=== PATIENT | male | born 1985 | race African-American/Black ===

== ENCOUNTER → 2021-01-21 11:39 | Outpatient (CLI) | payer OTHER, SELFPAY ==
--- NOTE | 2021-01-21 | DI.MRI.S_ITS ---
PROCEDURE: MR SHOULDER LT WO CON INDICATIONS: Pain in left shoulder TECHNIQUE: Noncontrast oblique coronal T2 fast spin echo with fat saturation, oblique sagittal T1 spin echo and T2 fast spin echo with fat saturation, axial T1 spin echo and T2 fast spin echo with fat saturation through the shoulder. COMPARISON: [facility], [place], XR SHOULDER 2+ VIEWS LEFT, 01/02/2021, 10:45. FINDINGS: Image quality: Excellent. Rotator cuff: Mild T2 signal elevation is present diffusely throughout the mid and anterior supraspinatus tendon at the humeral insertion site, indicating tendinopathy. The supraspinatus, infraspinatus, subscapularis and teres minor tendons are intact. Bones and bursae: No bone marrow contusions or fractures. Mild acromioclavicular joint degeneration. The acromion demonstrates conventional anatomy, without an os acromiale. A small amount of subacromial-subdeltoid or subcoracoid bursal fluid is present. Capsule and soft tissues: Labrum is grossly unremarkable The long head of the biceps tendon demonstrates normal location and morphology. The rotator interval appears normal, without fibrosis. The coracohumeral ligament is normal in thickness. IMPRESSION: 1. Supraspinatus tendinopathy. No rotator cuff tear. 2. Acromioclavicular joint osteoarthritis. 3. Mild subacromial bursitis. Dictated by: Kody De Jesus M.D. on 01/21/2021 at 14:06 Approved by: Kody De Jesus M.D. on 01/21/2021 at 14:07
== END ==
PROVIDERS: Referring Provider Physical Medicine & Rehabilitation; Visit Provider Physical Medicine & Rehabilitation
DX: M25.512 Pain in left shoulder (principal); M19.012 Primary osteoarthritis, left shoulder; M75.52 Bursitis of left shoulder
CPT/HCPCS: 73221